=== PATIENT | male | born 1975 | race African-American/Black ===

== ENCOUNTER 2018-08-24 00:44 | Emergency (ER) | payer OTHER ==
--- NOTE | 2018-08-24 00:48 | ER Report ---
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 His blood pressures grossly elevated. He ran out of his blood pressure medication 3 weeks ago. Patient was on lisinopril 20 mg per day. Patient denies chest pain, shortness of breath or dizziness. He notes a throbbing frontal headache 7/10 without alleviating or exacerbating factors. He notes no visual changes. REVIEW OF SYSTEMS: Respiratory: No cough, no dyspnea. Cardiovascular: No chest pain, no palpitations. Gastrointestinal: No vomiting, no abdominal pain. Musculoskeletal: No back pain. Allergies: Coded Allergies: No Known Drug Allergies (Unverified , 08/24/18) Home Meds Active Scripts Lisinopril (LISINOPRIL) 20 Mg Tablet, 20 MG PO QDAY for BP control, #30 TAB Prov:RADHAISABELLELalita العراقي DO 08/24/18 Reported Medications Lisinopril (LISINOPRIL) 10 Mg Tablet, 10 MG PO QDAY, TAB 08/24/18 Reviewed Nurses Notes: Yes Old Medical Records Reviewed: Yes Constitutional Vital Sign - Last 24 Hours 08/24/18 08/24/18 08/24/18 08/24/18 00:49 00:49 00:50 01:00 Temp 98.5 Pulse 116 96 Resp 17 14 B/P (MAP) 185/125 185/128 (147) 165/115 (132) Pulse Ox 87 96 O2 Delivery Room Air Nasal Cannula O2 Flow Rate 2.0 2 08/24/18 08/24/18 08/24/18 08/24/18 01:05 01:10 01:30 01:35 Pulse 103 102 104 Resp 19 20 21 B/P (MAP) 163/115 (131) Pulse Ox 95 96 95 08/24/18 08/24/18 08/24/18 08/24/18 01:43 01:48 02:00 02:05 Pulse 105 B/P (MAP) 153/124 (134) 161/113 (129) 160/105 (123) Pulse Ox 90 O2 Delivery Room Air 08/24/18 08/24/18 08/24/18 02:10 02:30 02:31 Pulse 102 B/P (MAP) 136/118 (124) 140/114 (123) Pulse Ox 93 Physical Exam Pulse ox 87% on room air, BP 185/125 General Appearance: The patient is alert, has no immediate need for airway protection and no current signs of toxicity., Blood pressure grossly elevated, iced Mario pressure almost 1:30 HEENT: Pupils equal and round no injection. TMs normal, oropharynx without redness or exudate Respiratory: Chest is non tender, lungs are clear to auscultation. Cardiac: regular rate and rhythm, no murmur Gastrointestinal: Abdomen is soft and non tender, no masses, bowel sounds normal. Musculoskeletal: Neck: Neck is supple and non tender. Extremities have full range of motion and are non tender. Skin: No rashes or lesions. DIFFERENTIAL DIAGNOSIS: After history and physical exam differential diagnosis was considered for headache including but not limited to subarachnoid hemorrhage, migraine headache, tension headache and infectious causes such as meningitis, pharyngitis and sinusitis. Additionally,shortness of breath including but not limited to pulmonary infectious process, COPD, asthma, pulmonary embolus and congestive heart failure. Medical Decision Making ED Course/Re-evaluation ED Course Patient was admitted to an examination room. H&P was done. The differential diagnoses was considered. Patient was treated with clonidine 0.1 mg by mouth. He was observed for 45 minutes. His pressure improved but not significantly. He was given Norvasc 5 mg. Patient was given Tylenol for his headache. That placing him on oxygen caused almost immediate reduction of his headache. On reevaluation, his pressures down significantly. His diastolic is still up quite high. He's discharged with a prescription for lisinopril 20 mg per day. He is advised to follow-up with his primary care doctor upon returning home. Decision to Disposition Date: Aug 24, 2018 Decision to Disposition Time: 02:28 Depart Departure Latest Vital Signs Vital Signs Date Time Temp Pulse Resp B/P (MAP) Pulse Ox O2 Delivery O2 Flow Rate FiO2 08/24/18 02:31 140/114 (123) 08/24/18 02:10 102 93 08/24/18 02:05 Room Air 08/24/18 01:35 21 08/24/18 01:00 2 08/24/18 00:49 98.5 Impression: Primary Impression: Hypertension Additional Impression: Headache Condition: Improved Disposition: HOME OR SELF-CARE New Scripts Lisinopril (LISINOPRIL) 20 Mg Tablet 20 MG PO QDAY for BP control, #30 TAB Prov: THUY GARCIA DO 08/24/18 Patient Instructions: Hypertension (ED) Additional Instructions: Follow-up with your primary care doctor for blood pressure recheck Problem Qualifiers Primary Impression: Hypertension Hypertension type: essential hypertension Qualified Codes: I10 - Essential (primary) hypertension Additional Impression: Headache Headache type: unspecified Headache chronicity pattern: acute headache Intractability: not intractable Qualified Codes: R51 - Headache THUY GARCIA DO Aug 24, 2018 00:48
[2018-08-24] MEDS ORDERED: LISI-362 PO (00:54)
[2018-08-24] MEDS ORDERED: cloNIDine HCL 0.1 MG TAB PO ONE (01:00)
[2018-08-24] MEDS ORDERED: ACETAMINOPHEN 325 MG TAB PO ONE (01:00)
[2018-08-24] MEDS ORDERED: amLODIPine BESYL(*) 5 MG TAB PO ONE (01:50)
[2018-08-24] MEDS ORDERED: LISI20TA29 PO (02:29)
[2018-08-24 02:31] VITALS: BP 140/114
== END 2018-08-24 02:38 | disposition home or self-care (01) ==
LOC: ER 01:30
DX: I10 Essential (primary) hypertension (principal); R51 Headache
CPT/HCPCS: 99283